=== PATIENT | female | born 1985 | race Caucasian/White ===

== ENCOUNTER → 2018-05-29 | Outpatient (CLI) | payer OTHER ==
[~2018-05-29] MED LIST: KET10 PO; LOR5 PO; LOR5/325 PO; MET2 PO; NO MEDS; NORE0.353 PO; ONDA4TAB PO
--- NOTE | 2018-05-29 14:32 | RADIOLOGY IMAGING REPORT ---
FACILITY: [facility] PATIENT NAME: Fang Porter : 1985 MR: [id number] V: [id number] EXAM DATE: ORDERING PHYSICIAN: BERNARD MALDONADO TECHNOLOGIST: Location: [facility] Patient: Fang Porter : 1985 Visit/Account:[id number] Date of Sevice: 05/29/2018 PELVIC HISTORY: Ovarian enlargement TECHNIQUE: Transvaginal and transabdominal ultrasound pelvis. COMPARISON: September 28, 2009 FINDINGS: Uterus: ; 12.8 cm length x 6.2 cm AP x 5.9 cm transverse. Myometrium: Appears heterogeneous. There are multiple hypodense isoechoic nodules within the myometr ium with peripheral vascularity likely representing fibroids. One anterior nodule measures 1.6 cente rs in diameter and two posterior nodules measure 1.8 and 2.4 cm in diameter. Endometrium: Unremarkable; double thickness 3.9 mm. Cervix: Grossly negative. Ovaries: Right - 3.3 x 3 x 2.3 cm Left - 2.7 x 2.3 x 1.8 cm Blood flow is documented in each ovary by duplex Doppler ultrasound. Adnexa: Grossly unremarkable. Free pelvic fluid: None. IMPRESSION: The myometrium appears heterogeneous containing at least three hypoechoic/isoechoic nodules likely re presenting fibroids as detailed above Report Dictated By: Estella Herrera MD at 05/29/2018 2:25 PM Report E-Signed By: Estella Herrera MD at 05/29/2018 2:28 PM WSN:[email or web address]
== END ==
LOC: US 04:31
PROVIDERS: ATTEND Family Medicine
DX: D52.9 Folate deficiency anemia, unspecified (principal)
CPT/HCPCS: 76856